=== PATIENT | female | born 1985 | race Caucasian/White ===

== ENCOUNTER → 2020-02-06 11:01 | Outpatient (CLI) | payer OTHER, SELFPAY ==
--- NOTE | ~2020-02-06 | XR_ITS ---
XR chest 2V DATE: 02/06/2020 11:12 INDICATION: Cough. Acute bronchitis. TECHNIQUE: 2 views COMPARISON: 10/15/2018 two-view chest FINDINGS: Bilateral hyperinflation. No pulmonary infiltrate or consolidation, pleural effusion or pul monary vascular congestion or pneumothorax. No hilar or mediastinal enlargement. Normal heart size. IMPRESSION: Bilateral hyperinflation; no active cardiopulmonary disease Reviewed, dictated and finalized at location B.
== END ==
PROVIDERS: PCP Internal Medicine; Visit Provider Nurse Practitioner
DX: J20.9 Acute bronchitis, unspecified (principal); R91.8 Other nonspecific abnormal finding of lung field
CPT/HCPCS: 71046

== ENCOUNTER 2020-02-09 08:03 | Outpatient (CLI) | payer OTHER, SELFPAY ==
--- NOTE | 2020-02-16 16:12 | WPDPFTINT ---
PFT Interpretation PFT Interpretation: DOS: 02/09/2020 REQUESTING: Neli Moss NP REASON FOR TESTING: Cough PULMONARY FUNCTION TESTS Results are reproducible. Spirometry: Normal FEV1, 92%. Normal FVC, 100%. Decreased FEV1% consistent with airflow obstruction. Lung volumes: Normal TLC 93%. No air trapping. Mild increase in airway resistance 156%. Diffusion: DLCO 94%, normal. Flow volume loop: Normal. IMPRESSION: Mild obstructive ventilatory defect without response to bronchodilator. Increase in airway resistance. Lack of response to bronchodilators should not preclude use if clinically indicated Laurita Nash MD
== END 2020-02-09 08:04 | disposition home or self-care (01) ==
PROVIDERS: PCP Internal Medicine; Visit Provider Nurse Practitioner
DX: R05 Cough (principal)
CPT/HCPCS: 94060; 94726; 94729

== ENCOUNTER → 2020-07-19 13:25 | Outpatient (CLI) | payer OTHER, SELFPAY ==
--- NOTE | ~2020-07-19 | US_ITS ---
EXAMINATION: US thyroid DATE: 07/19/2020 13:41 INDICATION: Goiter. TECHNIQUE: Multiple ultrasound images of the thyroid were obtained. COMPARISON: None. FINDINGS: The right thyroid lobe measures 5.4 x 1.7 x 1.8 cm. The left thyroid lobe measures 4.3 x 1.2 x 1.5 c m. In the left thyroid lobe, there is a 1.8 cm solid, hypoechoic, weueq-ntwr-ojme nodule with ill-de fined margin without echogenic foci (TI-RADS TR4). In the right thyroid lobe, there is a 14 mm solid, hypoechoic, pzyld-yewe-zbzt nodule with ill-defined margin without echogenic foci (TR4). In the righ t thyroid lobe, there is a 3.0 cm solid, hypoechoic, jrlda-zvvl-ymxs nodule with ill-defined margin w ithout echogenic foci (TR4). IMPRESSION: 1. Thyroid nodules. Ultrasound-guided fine-needle aspiration of the 2 largest nodules is recommended. Reviewed, dictated and finalized at location B. IMPRESSION: 1. Thyroid nodules. Ultrasound-guided fine-needle aspiration of the 2 largest n odules is recommended.
== END ==
PROVIDERS: PCP Internal Medicine; Visit Provider Internal Medicine Endocrinology, Diabetes & Metabolism
DX: E04.2 Nontoxic multinodular goiter (principal)
CPT/HCPCS: 76536

== ENCOUNTER 2020-08-02 13:13 | Outpatient (CLI) | payer OTHER, SELFPAY ==
--- NOTE | ~2020-08-02 | US_ITS ---
EXAMINATION: US FNA w image guidance, US FNA additional DATE: 08/02/2020 14:41 INDICATION: Bilateral thyroid nodules. TECHNIQUE: A time-out was performed to verify the patient's name, date of , and procedure to be performed . The procedure and its benefits and risks were discussed with the patient. Risks specifically discus sed included bleeding and infection. The patient understood the risks and agreed to proceed. Attentio n was first turned to the left thyroid nodule. The left neck was prepped and draped in the usual ster ile manner. 3 mL 1% lidocaine was used for local anesthesia. 6 passes were made with a 25G needle i nto the lesion. Appropriate needle location was documented with continuous sonographic guidance. Att ention was then turned to the right thyroid nodule. The right neck was prepped and draped in usual st erile manner. An additional 3 mm 1% lidocaine was used for local anesthesia. 6 passes were made with a 25G needle into the lesion. Appropriate needle location was documented with continuous sonographic guidance. Sterile bandages were applied. There were no immediate complications. FINDINGS: Grayscale ultrasound images demonstrate biopsy needles advanced into the elongated 1.9 cm TI RADS 4 n odule at the inferior left thyroid. Subsequent images demonstrate biopsy needles advanced into the 3. 0 cm TI RADS 4 right thyroid nodule. IMPRESSION: 1. Successful ultrasound-guided fine needle aspiration of a 1.9 cm TI RADS 4 left thyroid nodule. 2. Successful ultrasound-guided fine-needle aspiration of a 3.0 cm TI RADS 4 right thyroid nodule. Reviewed, dictated and finalized at location A. IMPRESSION: 1. Successful ultrasound-guided fine needle aspiration of a 1.9 cm TI RADS 4 l eft thyroid nodule. 2. Successful ultrasound-guided fine-needle aspiration of a 3.0 cm TI RADS 4 ri ght thyroid nodule.
== END 2020-08-02 13:14 | disposition home or self-care (01) ==
PROVIDERS: PCP Internal Medicine; Visit Provider Internal Medicine Endocrinology, Diabetes & Metabolism
DX: E04.2 Nontoxic multinodular goiter (principal)
CPT/HCPCS: 10005; 10006; 88173; 88305

== ENCOUNTER 2022-02-17 10:20 | Emergency (ER) | payer OTHER, SELFPAY ==
[2022-02-17] VITALS (28 sets, daily range): BP systolic 135–164; BP diastolic 92–108; PULSE 71–100; RESP 12–27; TEMP 37.3; O2SAT 97–100
--- NOTE | ~2022-02-17 | CT_ITS ---
EXAMINATION: CT abdomen pelvis w con EXAM DATE: 02/17/2022 13:39 INDICATION: Vaginal bleeding, bladder sling 02/07. TECHNIQUE: Spiral CT of the abdomen and pelvis was performed following intravenous injection of 100 m L Omnipaque 350. Axial, coronal and sagittal images of the abdomen and pelvis were reviewed. The do se-length product (DLP) for this examination was 942.89 mGy-cm. The exposure was tailored according to patient size (auto mA exposure control), and iterative reconstruction (ASIR) was used as additiona l dose reduction technique. Comparison is made to prior examination from 06/02/2012. FINDINGS: No free intraperitoneal fluid or hemorrhage. There is hepatic steatosis without suspicious focal lesion identified. Spleen, adrenal glands, pancreas are unremarkable. Gallbladder is unremark able. No biliary obstruction. Portal and splenic veins are patent. Kidneys enhance symmetrically. There is no hydronephrosis. The uterus and ovaries are unremarkable, no adnexal mass. The bladder is unremarkable. There is no retroperitoneal or pelvic lymphadenopathy. There are no findings to suggest appendicitis. The stomach and small bowel are unremarkable. There is expected amount of colonic stool. No free intraperitoneal gas. The heart is normal in size. T here are no pericardial or pleural effusions. The lung bases are unremarkable. The bones are unrema rkable. IMPRESSION: 1. Unremarkable bladder. Unremarkable exam. Reviewed, dictated and finalized at location B.
[2022-02-17 10:51] LABS: Basophils Percent Auto 0.7 % (0.2-1.2); Eosinophils Absolute Auto 0.1 K/mm3 (0-0.3); Eosinophils Percent Auto 2.1 % (0-4.4); Hematocrit 40.1 % (37.0-47.0); Hemoglobin 13.5 g/dL (12.0-15.0); Immature Granulocyte Absolute 0.02 K/mm3 (0.00-0.031); Immature Granulocyte Percent A 0.4 % (0-0.5); Lymphocytes Absolute Auto 2.09 K/mm3 (0.9-3.2); Lymphocytes Percent Auto 37.2 % (18.3-44.2); Mean Corpuscular HGB Conc 33.7 g/dl (32-36); Mean Corpuscular Hemoglobin 31.6 pg (26-34); Mean Corpuscular Volume 93.9 fl (80-100); Mean Platelet Volume 9.7 fl (7.4-10.4); Monocytes Absolute Auto 0.4 K/mm3 (0.1-0.6); Monocytes Percent Auto 7.8 % (2.6-8.5); Neutrophils Absolute Auto 2.9 K/mm3 (1.3-6.7); Neutrophils Percent Auto 51.8 % (45.5-73.1); Platelet Count Result 269 k/mm3 (150-375); Red Blood Count 4.27 M/mm3 (4.2-5.4); Red Cell Distribution Width 11.3 % (11.5-14.5); White Blood Count 5.6 K/mm3 (4.5-10.0)
[2022-02-17 11:03] LABS: Prothrombin Time 12.5 Seconds (11.1-14.7)
[2022-02-17 11:04] LABS: Partial Thromboplastin Time 26.9 SECONDS (22.3-36.8)
[2022-02-17 11:05] LABS: Alanine Aminotransferase 112 U/L (4-35); Albumin Level 4.6 g/dL (3.5-5.1); Alkaline Phosphatase 91 U/L (38-126); Anion Gap 12 mmol/L (8-16); Aspartate Amino Transferase 76 U/L (14-36); Bilirubin,Total 0.3 mg/dL (0.2-1.3); Blood Urea Nitrogen 10 mg/dL (7-17); Calcium 9.2 mg/dL (8.4-10.2); Carbon Dioxide 22 mmol/L (22-30); Chloride 103 mmol/L (98-107); Estimated CRCL calculation 158 ml/min; Estimated Glomerular Filt Rate > 60; Glucose 93 mg/dL (65-110); Potassium 3.9 mmol/L (3.4-5.0); Sodium 137 mmol/L (137-145)
[2022-02-17 11:11] LABS: Add Urine Microscopic? YES; Appearance Urine Clear (Clear); Bilirubin Urine Negative (Negative); Blood Urine 3+ (Negative); Color Urine Straw (Yellow); Glucose Urine UA Negative (Negative); Ketones Urine Negative (Negative); Leukocyte Esterase Ur Negative LEU/UL (Negative); Nitrate Urine Negative (Negative); Protein Urine Negative (Negative); RBC Urine 0-2 /hpf (0-2); Squamous Epithelial Cell Urine Occasional /hpf (Few); Urobilinogen Urine Negative mg/dL (<2.0); WBC Urine 0-3 /hpf
[2022-02-17 11:14] LABS: Specific Grav Ur 1.003 (1.001-1.035)
--- NOTE | 2022-02-17 11:21 | ED.GENADULT ---
HPI - General Adult General Chief complaint: Unspecified <JOS Martin Last Filed: 02/17/22 19:55> Stated complaint: losing a lot of blood <JOS Martin Last Filed: 02/17/22 19:55> Time Seen by Provider: 02/17/22 10:37 <JOS Martin Last Filed: 02/17/22 19:55> Source: patient <JOS Martin Last Filed: 02/17/22 19:55> Mode of arrival: ambulatory <JOS Martin Last Filed: 02/17/22 19:55> Limitations: no limitations <JOS Martin Last Filed: 02/17/22 19:55> History of Present Illness HPI narrative: Patient is a 36-year-old female who presents the ED with report of vaginal bleeding. Patient reports she had a bladder sling surgery done on 02/[address] Szymanski for stress incontinence. She has been doing well since surgery and denies any current urinary symptoms. This morning patient went to the bathroom and noted having profuse bleeding from her vagina. She states it was streaming out of her. She tried calling Dr. Szymanski's office, but was unable to get a hold of anybody, thus prompting her presentation to the ED. Patient reports she had a normal menstrual cycle last week. She was supposed to start her new control pack yesterday but did not pick this up from the pharmacy yet. She also reports having lower abdominal cramping and mild lightheadedness, but notes she is very anxious about the blood. She denies any nausea, vomiting, fever, chills, back pain, rectal bleeding, diarrhea, constipation. <JOS Martin Last Filed: 02/17/22 19:55> Related Data Home medications: Home Medications Medication Instructions Recorded Confirmed multivitamin 1 tablet PO DAILY 10/06/19 10/31/21 melatonin 3 mg capsule 3 mg PO .QHS cap 05/04/20 10/31/21 levothyroxine 50 mcg capsule 50 mcg PO DAILY 01/08/21 10/31/21 <JOS Martin Last Filed: 02/17/22 19:55> Allergies/adverse reactions: Allergies Allergy/AdvReac Type Severity Reaction Status Date / Time Penicillins Allergy Unknown Rash Verified 02/17/22 10:29 <Junie Morales PA-C - Last Filed: 02/17/22 19:55> Review of Systems Review of Systems: CONSTITUTIONAL: Denies fever, chills, or sweats. CARDIOVASCULAR: Denies chest pain, palpitations, or edema. RESPIRATORY: Denies dyspnea. GASTROINTESTINAL: Reports lower abdominal cramping. Denies nausea, vomiting, rectal bleeding, constipation, or diarrhea. GENITOURINARY: Reports vaginal bleeding. Denies dysuria or hematuria. SKIN: Denies rash or itching. MUSCULOSKELETAL: Denies back pain, joint pain, or myalgia. NEUROLOGIC: Reports lightheadedness. Denies headache, numbness, or weakness. PSYCHIATRIC: Reports anxiety. <Junie Morales PA-C - Last Filed: 02/17/22 19:55> All systems reviewed & are unremarkable except as noted in HPI and below <Junie Morales PA-C - Last Filed: 02/17/22 19:55> [facility] Past Medical History Medical History: Medical History Alcohol consumption binge drinking Pyelonephritis Recurrent UTI (urinary tract infection) <Junie Morales PA-C - Last Filed: 02/17/22 19:55> Surgical History Surgical History: Surgical History H/O breast augmentation 2007 H/O wrist surgery 2012 History of bladder surgery <Junie Morales PA-C - Last Filed: 02/17/22 19:55> Family History Family History: Family History Mother Diabetes mellitus Hypertension Hyperthyroidism Grandparent Cerebrovascular accident Sibling Family history of hypothyroidism Anemia Other Asthma Family history of alcoholism Family history of arthritis Family history of coronary artery disease <Junie Morales PA-C - Last Filed: 02/17/22 19:55> Social History Social History: Social History (Reviewed 02/17/22 @ 19:47 by Rac
--- NOTE | 2022-02-17 15:44 | WPDURCON ---
Assessment and Plan Assessment and plan (1) Status post creation of urethral sling by suprapubic approach: Code(s): Z98.890 - Other specified postprocedural states Status: Acute Assessment and Plan: 10 day s/p Cystoscopy, urethral sling placement by Dr. Szymanski at [facility] on 02/07/22. Vaginal incision is intact, tender on examination. (2) Post-op bleeding: Qualifiers: Procedure type: genitourinary Surgical complication system/body Area: genitourinary Qualified Code(s): N99.820 - Postprocedural hemorrhage of a genitourinary system organ or structure following a genitourinary system procedure Status: Acute Assessment and Plan: H&H stable. WBC stable. CT shows no urologic abnormalities. She is afebrile and UA shows blood only. No mesh noted on examination. Patient likely had post operative hematoma that was passed from her vaginal incision. She is ok to be discharged home and follow up as planned in 4 weeks in the office for another vaginal examination. She should come back to the ER or go to the office if bleeding re-occurs, she develops symptoms of infection, fever or new acute abdominal pain. Urology Consult Note HPI Date Seen: 02/17/22 Primary Care Provider: Smith Hernandez, Consult Narrative Narrative: Bertha Ramsay is a 36 year old female who presented to the ER s/p Cystoscopy and urethral sling placement by Dr. Szymanski on 02/07/22. She describes having sudden onset this morning of vaginal bleeding with clots. She states it was a very large amount with clots and she was worried. She states it started around 9:30am and has persisted through much of day soaking her pants and underwear. The last trip the restroom in the ER she states it had started to slow down. She had her menstrual cycle last week which ended before this started. She is afebrile, denies dysuria, hematuria, flank pain, nausea, vomiting, weakness, frequency or urgency to urinate. She does state she is having some cramping in her suprapubic area. A CT scan was completed today which showed no urologic abnormalities. Her H&H is stable and WBC is within normal limits. She is afebrile and urinalysis shows 3+blood, otherwise normal. Review of Systems Cardiovascular: Cardiovascular: Reports no additional cardiovascular complaints Respiratory: Respiratory: Reports no additional respiratory complaints Gastrointestinal: Gastrointestinal: Reports abdominal pain, Denies nausea and Denies vomiting Genitourinary: Genitourinary: Reports abnormal vaginal bleeding, Denies hematuria, Denies nocturia, Denies menorrhagia, Denies dysuria, Reports pelvic pain, Denies flank pain, Denies urinary incontinence, Denies urinary hesitancy and Denies urinary urgency ON LICENSE OF [facility] Past Medical History Medical History Alcohol consumption binge drinking Pyelonephritis Recurrent UTI (urinary tract infection) Surgical History Surgical History (Updated 02/17/22 @ 15:47 by Lillie Pagan APRN) H/O breast augmentation 2007 H/O wrist surgery 2012 History of bladder surgery Family History Family History Mother Diabetes mellitus Hypertension Hyperthyroidism Grandparent Cerebrovascular accident Sibling Family history of hypothyroidism Anemia Other Asthma Family history of alcoholism Family history of arthritis Family history of coronary artery disease Social History Social History Smoking status: Never smoker Alcohol intake: current Alcohol use details: social Meds Home Medications and Allergies Home Medications Medication Instructions Recorded Confirmed Type multivitamin 1 tablet PO DAILY 10/06/19 10/31/21 History melatonin 3 mg capsule 3 mg PO .QHS cap 05/04/20 10/31/21 History levothyroxine 50 mcg capsule 50 mc
== END 2022-02-17 15:56 | disposition home or self-care (01) ==
PROVIDERS: Physician Assistant; Emergency Provider Emergency Medicine; PCP Internal Medicine
DX: N99.820 Postprocedural hemorrhage of a genitourinary system organ or structure following a genitourinary system procedure (principal); Z87.440 Personal history of urinary (tract) infections
CPT/HCPCS: 36415; 51701; 74177; 80053; 81001; 81025; 85025; 85610; 85730; 86850; 86900; 86901; 99284; Q9967

== ENCOUNTER → 2022-02-27 14:33 | Outpatient (CLI) | payer OTHER, SELFPAY ==
--- NOTE | ~2022-02-27 | XR_ITS ---
EXAMINATION: XR chest 2V DATE: 02/27/2022 14:53 INDICATION: Acute bronchitis TECHNIQUE: PA and lateral views of the chest were obtained. COMPARISON: Chest radiograph dated 02/06/2020 FINDINGS: The lungs remain clear with no focal airspace opacities, pulmonary edema, pleural effusion or pneumot horax. The cardiomediastinal silhouette is normal. Chronic mild anterior wedging of a midthoracic alexi tebral body. IMPRESSION: 1. No acute cardiopulmonary disease. Reviewed, dictated and finalized at location B.
== END ==
PROVIDERS: PCP Internal Medicine; Visit Provider Clinical Nurse Specialist
DX: J20.9 Acute bronchitis, unspecified (principal)
CPT/HCPCS: 71046

== ENCOUNTER 2022-03-11 09:50 | Outpatient (CLI) | payer OTHER, SELFPAY ==
--- NOTE | 2022-03-14 12:51 | WPDHOLTEREM ---
Holter/Event Monitor Holter/Event Monitor Date of procedure: 03/11/22 Holter/Event Procedure: 48 Hr Holter Monitor Diagnosis: Palpitations Conclusion: 1. 48 hour holter monitor on 03/11/22. 2. Underlying rhythm is sinus rhythm. HR range 54-171 bpm; average HR 92 bpm. 3. There are 86 premature supraventricular complexes and 1 supraventricular couplet. No supraventricular tachycardia. 4. There are 3 premature ventricular complexes. No ventricular tachycardia. 5. No sinoatrial or atrioventricular blocks. No significant pauses greater than 2 seconds. 6. Patient reports symptoms of spinning and fast heart rate which demonstrate sinus rhythm, HR range 100-129 bpm.
== END 2022-03-11 09:51 | disposition home or self-care (01) ==
LOC: ANHCARD 09:51
PROVIDERS: PCP Internal Medicine; Visit Provider Clinical Nurse Specialist
DX: R00.2 Palpitations (principal)
CPT/HCPCS: 93225; 93226

== ENCOUNTER 2022-03-18 09:45 | Outpatient (CLI) | payer OTHER, SELFPAY ==
--- NOTE | 2022-03-18 10:12 | ECHO_ITS ---
Patient Info Name: Bertha Ramsay Age: 36 years : 1985 Gender: Female Ht: 68 in Wt: 215 lbs BSA: 2.20 m2 HR: 74 bpm BP: 155 / 114 mmHg Technical Quality: Good Exam Date: 03/18/2022 10:31 AM Exam Location: [facility] Patient Status: Outpatient Admit Date: 03/18/2022 Staff Ordering Physician: Lesly Vidal Director Of Clinical Applications: Jeferson Dewey RDCS, RT Attending Provider: Lesly Vidal Referring Physician: Marcy MORTENSEN; Exam Type: CA echo doppler color flow Study Info Indications R00.2 - Palpitations Complete two-dimensional, color flow and Doppler transthoracic echocardiogram is performed. Strain analysis performed. Summary 1. Complete two-dimensional, color flow and Doppler transthoracic echocardiogram is performed. 2. Left ventricular chamber dimension is normal. 3. Left ventricular systolic function is normal, estimated at 65-70%. 4. The left ventricular diastolic function is normal. 5. E/e' 7 is not elevated. 6. Global longitudinal strain is normal at -17.7%. Left Ventricle E/e' 7 is not elevated. Global longitudinal strain is normal at -17.7%. Left ventricular chamber dimension is normal. Left ventricular systolic function is normal, estimated at 65-70%. The left ventricular diastolic function is normal. Right Ventricle Right ventricular systolic function is normal and with normal TAPSE 2.4 cm. Right ventricular chamber dimension is normal. Left Atria Left atrial chamber dimension is normal. Right Atria Right atrial chamber dimension is normal. Aortic Valve The aortic valve is trileaflet. There is no aortic valve stenosis. There is no aortic valve regurgitation. Pulmonic Valve There is no pulmonic regurgitation. Mitral Valve There is no mitral valve stenosis. There is no mitral valve regurgitation. Tricuspid Valve There is no tricuspid valve regurgitation. Pericardium/Pleural There is no pericardial effusion. Inferior Vena Cava Normal inferior vena cava with >50% collapse upon inspiration consistent with normal right atrial pressure, 5 mmHg. Aorta The aortic root size at the sinus of Valsalva is normal. Left Ventricular Outflow Tract Name Value Normal LVOT 2D LVOT Diameter 2.0 cm LVOT Doppler LVOT Peak Gradient 2 mmHg LVOT Mean Gradient 1 mmHg LVOT VTI 15 cm LVOT VTI/AV VTI Ratio 0.9 LVOT Stroke Volume 47 ml LVOT CO 3.7 l/min LVOT CI 1.7 l/min/m2 Mitral Valve Name Value Normal MV Doppler MV Decel [place] 413 cm/s2 MV PHT 58 ms MV Area (PHT) 3.8 cm2 4.0-5.0 M
== END 2022-03-18 09:46 | disposition home or self-care (01) ==
PROVIDERS: PCP Internal Medicine; Visit Provider Clinical Nurse Specialist
DX: R00.2 Palpitations (principal)
CPT/HCPCS: 93306

== ENCOUNTER 2022-05-05 08:07 | Outpatient (CLI) | payer OTHER, SELFPAY | END 2022-05-19 10:01 | disposition home or self-care (01) | LOC: ANHCSM 08:08 | PROVIDERS: PCP Internal Medicine; Visit Provider Internal Medicine Cardiovascular Disease | DX: G47.10 Hypersomnia, unspecified (principal) | CPT/HCPCS: 99199 ==

== ENCOUNTER 2023-01-03 09:20 | Emergency (ER) | payer OTHER, SELFPAY ==
--- NOTE | 2023-01-03 09:23 | ED.URI ---
HPI - URI/Sore Throat General Chief Complaint: Upper Respiratory Infection Stated Complaint: SORE THROAT S/P STREP EXPOSURE Time Seen by Provider: 01/03/23 09:23 Source: patient and RN notes reviewed History of Present Illness [facility] Narrative: Patient is a 37-year-old female who presents to urgent care with complaints of sore throat, runny nose, headache and fatigue. Patient states that her son was positive for strep approximately 4 days ago and she has had symptoms since . Denies any fevers, nausea or vomiting. No other acute complaints. Patient has been taking Advil for her symptoms no acute distress noted. Patient aware of the plan of care Some parts of this dictation were generated by voice recognition software and may contain typographical and/or grammatical inaccuracies. Related Data Home Medications Medication Instructions Recorded Confirmed levothyroxine 50 mcg capsule 50 mcg PO DAILY 01/08/21 01/03/23 (Tirosint) cetirizine 10 mg capsule (Zyrtec) 10 mg PO DAILY PRN Congestion 03/27/22 01/03/23 cyanocobalamin (vitamin B-12) 1,000 mcg subcut WEEKLY 10/29/22 01/03/23 1,000 mcg/mL injection solution (Dodex) losartan 25 mg tablet 25 mg PO DAILY 10/29/22 01/03/23 metformin 500 mg tablet,extended 500 mg PO DAILY 10/29/22 01/03/23 release 24 hr tirzepatide 2.5 mg/0.5 mL 2.5 mg subcut WEEKLY 10/29/22 01/03/23 subcutaneous pen injector (Mounjaro) Allergies Allergy/AdvReac Type Severity Reaction Status Date / Time Penicillins Allergy Unknown Rash Verified 01/03/23 09:32 Review of Systems Review of Systems: CONSTITUTIONAL: Denies fever, chills, or sweats. Reports of fatigue EYES: Reports runny nose, sore throat CARDIOVASCULAR: Denies chest pain, palpitations, or edema. RESPIRATORY: Denies cough or dyspnea. GASTROINTESTINAL: Denies abdominal pain, nausea, vomiting, or diarrhea. GENITOURINARY: Denies dysuria or hematuria. SKIN: Denies rash or itching. MUSCULOSKELETAL: Denies back pain, joint pain, or myalgia. NEUROLOGIC: Reports of headache All other systems reviewed are negative, except as documented in HPI. [facility] Past Medical History Medical History Alcohol consumption binge drinking Pyelonephritis Recurrent UTI (urinary tract infection) Surgical History Surgical History H/O breast augmentation 2007 H/O wrist surgery 2011 History of bladder surgery 02/07/2022 Bladder sling Family History Family History Mother Diabetes mellitus Hypertension Hyperthyroidism Grandparent Cerebrovascular accident Sibling Family history of hypothyroidism Anemia Other Asthma Family history of alcoholism Family history of arthritis Family history of coronary artery disease Social History Social History (Updated 10/29/22 @ 08:36 by Anushka Guardado [facility]) Smoking status: Never smoker Alcohol intake: current Alcohol use details: social Lack of Transportation: No Lack of Food: Never True Current Housing: I Have Housing Concerned About Future Housing: No Difficulty Paying Gas/Electric Bills: No Difficulty Paying for Meds: No Currently Unemployed: No Education: Master's Degree or Higher Difficulty w/ Childcare or Family Care: No Comments At the time of my signature, I reviewed and agree with the nursing past medical, surgical, social, and family history. There is no relevant family history pertinent to the patient complaint. Exam Narrative: GENERAL: This is a well-nourished, well-developed patient, in no apparent distress. HEAD: normocephalic, atraumatic. EYES: PERRL. Sclera clear/white. Vision is grossly intact. EARS: External ears normal, auditory canals clear and without drainage, TMs normal without perforation. Hearing grossly intact. NOSE: External nose normal with no obvious nasal dischar
[2023-01-03 09:30] VITALS: BP 131/99; PULSE 100; RESP 16; TEMP 36.3; O2SAT 100
== END 2023-01-03 09:49 | disposition home or self-care (01) ==
PROVIDERS: Emergency Provider Nurse Practitioner Family; PCP Internal Medicine
DX: J02.9 Acute pharyngitis, unspecified (principal); Z20.818 Contact with and (suspected) exposure to other bacterial communicable diseases
CPT/HCPCS: 87081; 87880; 99213; G0463

== ENCOUNTER 2023-01-17 13:03 | Emergency (ER) | payer OTHER, SELFPAY ==
[2023-01-17 13:11] VITALS: BP 139/98; PULSE 90; RESP 16; TEMP 36.5; O2SAT 99
--- NOTE | 2023-01-17 13:41 | ED.FEMALEGU ---
HPI - Female Genitourinary General Chief complaint: Urogenital-Female Stated complaint: UTI SYMPTOMS Time Seen by Provider: 01/17/23 13:35 Source: patient, RN notes reviewed and old records reviewed Mode of arrival: ambulatory Limitations: no limitations History of Present Illness HPI Narrative: 37-year-old female who presents to [facility] with complaints urinary tract symptoms which include burning with urination, urinary frequency and urgency which all started yesterday. Patient reports she has taken 2 doses of Bactrim DS which has not helped her symptoms which usually does and she also has been taking azo with last dose 1100 today Patient reports that she has not had a UTI since May but has had several over the past 6 years. Patient reports that she has seen Dr Szymanski Urologist in the past. MD elicited complaint: dysuria and UTI Pertinent past history: recurrent UTIs Onset (ago): day(s) (yesterday) Related Data Home Medications Medication Instructions Recorded Confirmed levothyroxine 50 mcg capsule 50 mcg PO DAILY 01/08/21 01/17/23 (Tirosint) cetirizine 10 mg capsule (Zyrtec) 10 mg PO DAILY PRN Congestion 03/27/22 01/17/23 cyanocobalamin (vitamin B-12) 1,000 mcg subcut WEEKLY 10/29/22 01/17/23 1,000 mcg/mL injection solution (Dodex) losartan 25 mg tablet 25 mg PO DAILY 10/29/22 01/17/23 metformin 500 mg tablet,extended 500 mg PO DAILY 10/29/22 01/17/23 release 24 hr tirzepatide 2.5 mg/0.5 mL 2.5 mg subcut WEEKLY 10/29/22 01/17/23 subcutaneous pen injector (Mounjaro) Allergies Allergy/AdvReac Type Severity Reaction Status Date / Time Penicillins Allergy Unknown Rash Verified 01/17/23 13:09 Review of Systems Review of Systems: CONSTITUTIONAL: Denies fever, chills, or sweats. CARDIOVASCULAR: Denies chest pain, palpitations, or edema. RESPIRATORY: Denies cough or dyspnea. GASTROINTESTINAL: Denies abdominal pain, nausea, vomiting, or diarrhea. GENITOURINARY: Reports dysuria, frequency, urgency. Denies flank pain or hematuria. SKIN: Denies rash or itching. MUSCULOSKELETAL: Denies back pain or myalgia. Denies CVA tenderness NEUROLOGIC: Denies headache All systems reviewed & are unremarkable except as noted in HPI and below PMFSH Past Medical History Medical History Alcohol consumption binge drinking Pyelonephritis Recurrent UTI (urinary tract infection) Surgical History Surgical History H/O breast augmentation 2007 H/O wrist surgery 2011 History of bladder surgery 02/07/2022 Bladder sling Family History Family History Mother Diabetes mellitus Hypertension Hyperthyroidism Grandparent Cerebrovascular accident Sibling Family history of hypothyroidism Anemia Other Asthma Family history of alcoholism Family history of arthritis Family history of coronary artery disease Social History Social History (Updated 10/29/22 @ 08:36 by Anushka Guardado [facility]) Smoking status: Never smoker Alcohol intake: current Alcohol use details: social Lack of Transportation: No Lack of Food: Never True Current Housing: I Have Housing Concerned About Future Housing: No Difficulty Paying Gas/Electric Bills: No Difficulty Paying for Meds: No Currently Unemployed: No Education: Master's Degree or Higher Difficulty w/ Childcare or Family Care: No Comments At time of signature, agree with nursing past medical, surgical, social and family history. There is no relevant family history pertinent to the presenting complaint Exam Narrative: GENERAL: Well-appearing, well-nourished, and in no acute distress. HEAD: Normocephalic, atraumatic. NECK: Supple.no lymphadenopathy CHEST: Clear to auscultation. No respiratory distress.SAO2 99% on room air HEART: Regular rate and rhythm. No murmur heard. Normal periphe
== END 2023-01-17 13:55 | disposition home or self-care (01) ==
PROVIDERS: Emergency Provider Registered Nurse; PCP Internal Medicine
DX: N39.0 Urinary tract infection, site not specified (principal)
CPT/HCPCS: 81003; 87086; 87088; 99213; G0463

== ENCOUNTER 2023-03-09 11:10 | Outpatient (CLI) | payer OTHER, SELFPAY ==
[2023-03-09 11:26] LABS: Hematocrit 38.1 % (37.0-47.0); Hemoglobin 12.9 g/dL (12.0-15.0); Mean Corpuscular HGB Conc 33.9 g/dl (32-36); Mean Corpuscular Hemoglobin 31.8 pg (26-34); Mean Corpuscular Volume 93.8 fl (80-100); Platelet Count Result 259 k/mm3 (150-375); Red Blood Count 4.06 M/mm3 (4.2-5.4); Red Cell Distribution Width 11.9 % (11.5-14.5); White Blood Count 8.6 K/mm3 (4.5-10.0)
[2023-03-09 14:52] LABS: Alanine Aminotransferase 30 U/L (6-35); Albumin Level 4.9 g/dL (3.5-5.1); Alkaline Phosphatase 69 U/L (38-126); Anion Gap 8 mmol/L (8-16); Aspartate Amino Transferase 27 U/L (14-36); Bilirubin,Total 0.5 mg/dL (0.2-1.3); Blood Urea Nitrogen 14 mg/dL (7-17); Calcium 9.5 mg/dL (8.4-10.2); Carbon Dioxide 26 mmol/L (22-30); Chloride 101 mmol/L (98-107); Estimated Glomerular Filt Rate > 60; Glucose 88 mg/dL (65-110); Potassium 4.6 mmol/L (3.4-5.0); Sodium 135 mmol/L (137-145)
[2023-03-09 14:58] LABS: Iron 113 ug/dL (37-170)
[2023-03-09 15:12] LABS: Percent Iron Saturation 32 % (20-50)
== END 2023-03-09 11:11 | disposition home or self-care (01) ==
LOC: ANHLAB 11:12
PROVIDERS: PCP Internal Medicine; Visit Provider Internal Medicine Hematology & Oncology
DX: E83.110 Hereditary hemochromatosis (principal)
CPT/HCPCS: 36415; 80053; 82728; 83540; 83550; 85027

== ENCOUNTER 2023-07-07 12:06 | Outpatient (CLI) | payer OTHER, SELFPAY ==
--- NOTE | ~2023-07-07 | MM_ITS ---
EXAMINATION: MM diag ann implant BI w joel HISTORY: Concern for implant rupture TECHNIQUE: Additional 3-D tomosynthesis images of the breasts were performed and synthetic 2-D images were generated. CAD analysis was submitted and interpreted. COMPARISON: None BREAST PARENCHYMAL COMPOSITION: Breast composed of scattered areas of fibroglandular density FINDINGS: There are bilateral subglandular silicone implants. No definitive evidence for implant rupt ure is seen, although further evaluation with MRI is recommended. There are no suspicious masses, shaina cifications or architectural distortion in either breast to suggest malignancy. IMPRESSION: 1. No evidence for malignancy in either breast. 2. Routine yearly screening mammogram and regular clinical breast examination are recommended. If the re is concern for implant rupture, further evaluation with MRI is recommended. BI-RADS Category 1: Negative Reviewed, dictated and finalized at location A. IMPRESSION: 1. No evidence for malignancy in either breast. 2. Routine yearly screening mammogram and regular clinical breast examination a re recommended. If there is concern for implant rupture, further evaluation wit h MRI is recommended. BI-RADS Category 1: Negative
== END 2023-07-07 12:07 | disposition home or self-care (01) ==
DX: Z12.31 Encounter for screening mammogram for malignant neoplasm of breast (principal); Z98.82 Breast implant status
CPT/HCPCS: 77062; 77066; G0279

== ENCOUNTER → 2023-11-03 14:11 | Outpatient (CLI) | payer OTHER, SELFPAY ==
--- NOTE | ~2023-11-03 | XR_ITS ---
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 RESULT: Lines, tubes, and devices: None. Lungs and pleura: Clear. Cardiomediastinal silhouette: Stable. Other: No acute osseous or upper abdominal finding. IMPRESSION: No acute cardiopulmonary process. Reviewed, dictated and finalized at location K. MATIC NAILING MACHINE OPERATOR
== END ==
PROVIDERS: PCP Internal Medicine; Visit Provider Internal Medicine
DX: R06.00 Dyspnea, unspecified (principal); R05.9 Cough, unspecified; I10 Essential (primary) hypertension
CPT/HCPCS: 71046

== ENCOUNTER 2023-11-03 15:07 | Outpatient (CLI) | payer OTHER, SELFPAY ==
[2023-11-03 15:44] LABS: D Dimer 0.27 ug/mL (<0.48)
== END 2023-11-03 15:08 | disposition home or self-care (01) ==
LOC: ANHLAB 15:08
PROVIDERS: PCP Internal Medicine; Visit Provider Internal Medicine
DX: U07.1 COVID-19 (principal); R06.00 Dyspnea, unspecified
CPT/HCPCS: 36415; 85380

== ENCOUNTER 2023-12-23 11:21 | Outpatient (CLI) | payer OTHER, SELFPAY ==
[2023-12-23 11:42] LABS: Basophils Percent Auto 0.6 % (0.2-1.2); Eosinophils Absolute Auto 0.1 K/mm3 (0-0.3); Eosinophils Percent Auto 0.9 % (0-4.4); Hematocrit 40.4 % (37.0-47.0); Immature Granulocyte Absolute 0.01 K/mm3 (0.00-0.031); Immature Granulocyte Percent A 0.2 % (0-0.5); Lymphocytes Absolute Auto 1.41 K/mm3 (0.9-3.2); Lymphocytes Percent Auto 21.3 % (18.3-44.2); Mean Corpuscular HGB Conc 34.7 g/dl (32-36); Mean Corpuscular Hemoglobin 31.7 pg (26-34); Mean Corpuscular Volume 91.6 fl (80-100); Mean Platelet Volume 9.9 fl (7.4-10.4); Monocytes Absolute Auto 0.4 K/mm3 (0.1-0.6); Monocytes Percent Auto 5.4 % (2.6-8.5); Neutrophils Absolute Auto 4.8 K/mm3 (1.3-6.7); Neutrophils Percent Auto 71.6 % (45.5-73.1); Platelet Count Result 255 k/mm3 (150-375); Red Blood Count 4.41 M/mm3 (4.2-5.4); Red Cell Distribution Width 11.5 % (11.5-14.5); White Blood Count 6.6 K/mm3 (4.5-10.0)
[2023-12-23 12:56] LABS: Cholesterol 310 mg/dL (0-200); HDL Direct 50 mg/dL; Triglycerides 123 mg/dL (<150)
[2023-12-23 13:09] LABS: Alanine Aminotransferase 16 U/L (6-35); Albumin Level 4.8 g/dL (3.5-5.1); Alkaline Phosphatase 54 U/L (38-126); Anion Gap 11 mmol/L (8-16); Aspartate Amino Transferase 24 U/L (14-36); Bilirubin,Total 0.6 mg/dL (0.2-1.3); Blood Urea Nitrogen 12 mg/dL (7-17); Calcium 9.6 mg/dL (8.4-10.2); Carbon Dioxide 25 mmol/L (22-30); Chloride 103 mmol/L (98-107); Estimated Glomerular Filt Rate > 60; Glucose 98 mg/dL (65-110); LDL Cholesterol Direct 185 mg/dL; Potassium 4.5 mmol/L (3.4-5.0); Sodium 139 mmol/L (137-145)
[2023-12-23 14:59] LABS: Iron 109 ug/dL (37-170)
[2023-12-23 15:15] LABS: Percent Iron Saturation 34 % (20-50)
== END 2023-12-23 11:22 | disposition home or self-care (01) ==
LOC: ANHLAB 11:23
PROVIDERS: Clinical Nurse Specialist; PCP Internal Medicine; Visit Provider Internal Medicine Hematology & Oncology
DX: E83.110 Hereditary hemochromatosis (principal); I10 Essential (primary) hypertension
CPT/HCPCS: 36415; 80053; 80061; 82728; 83540; 83550; 85025

== ENCOUNTER 2024-07-06 12:32 | Emergency (ER) | payer OTHER, SELFPAY ==
--- NOTE | 2024-07-06 12:40 | ED.URI ---
HPI - URI/Sore Throat General Chief Complaint: Upper Respiratory Infection Stated Complaint: SINUS CONGESITON Time Seen by Provider: 07/06/24 12:45 Source: patient and RN notes reviewed Mode of arrival: ambulatory Limitations: no limitations History of Present Illness HPI Narrative: 39 y/o female presented for c/o sinus pressure and congestion since 06/26, and states it is moving to her chest for the last 3 days. States she felt better briefly. Endorses sob with exertion, cough is productive of green sputum. Denies lethargy, n/v/d/f/c. Taking Doxycycline 100mg daily for the last 3 weeks while on safari. Tested negative for covid 3 times since onset of symptoms. MD elicited complaint: cough Related Data Home Medications Medication Instructions Recorded Confirmed ascorbic acid 7.5 mg-vit E 7.5 1 tablet PO DAILY 10/06/23 07/06/24 unit-biotin 1,250 mcg chewable tablet (Hair,Skin,Nails with Biotin) escitalopram oxalate 10 mg tablet 10 mg PO DAILY 04/29/24 07/06/24 (Lexapro) testosterone 50 mg implant pellet 50 mg implant DIRECTED 05/12/24 07/06/24 doxycycline hyclate 100 mg tablet 100 mg PO DAILY 07/06/24 07/06/24 Allergies Allergy/AdvReac Type Severity Reaction Status Date / Time Penicillins Allergy Unknown Rash Verified 07/06/24 12:50 Review of Systems Review of Systems: CONSTITUTIONAL: Denies malaise, chills, sweats, fever EYES: Denies visual changes, redness, or discharge ENT: Reports rhinorrhea, congestion, sinus pain, denies otalgia, sore throat CARDIOVASCULAR: Denies chest pain, palpitations, edema RESPIRATORY: Reports cough, post nasal drainage. Denies dyspnea GASTROINTESTINAL: Denies abdominal pain, nausea, vomiting, diarrhea MUSCULOSKELETAL: Denies myalgia NEUROLOGIC: Denies headache PMFSH Past Medical History Medical History Alcohol consumption binge drinking COVID-19 Elevated ferritin level Elevated liver enzymes Hypersomnia Hypertension Hypothyroid Insulin resistance Pyelonephritis Recurrent UTI (urinary tract infection) UTI (urinary tract infection) Vaginal symptom Surgical History Surgical History H/O breast augmentation 2008 H/O wrist surgery 2012 History of bladder surgery 02/07/2022 Bladder sling History of breast surgery new implants, lift, liposuction Family History Family History Mother Diabetes mellitus Hypertension Hyperthyroidism Grandparent Cerebrovascular accident Sibling Family history of hypothyroidism Anemia Other Asthma Family history of alcoholism Family history of arthritis Family history of coronary artery disease Social History Social History Smoking status: Never smoker Alcohol intake: current Alcohol use details: social Substance use: never Lack of Transportation: No Lack of Food: Never True Current Housing: I Have Housing Concerned About Future Housing: No Difficulty Paying Gas/Electric Bills: No Difficulty Paying for Meds: No Currently Unemployed: No Education: Master's Degree or Higher Difficulty w/ Childcare or Family Care: No Exam Narrative: GENERAL: well-appearing EYES: conjunctivae clear ENT: Mucous membranes moist. TM pearly leslie with dull light reflex bilaterally; no tragal tenderness. Oropharynx not erythematous without lesions or exudate, no drooling, no hoarseness, no trismus, uvula midline. No tripod positioning, muffled voice, soft palate or pharyngeal wall bulging CHEST: Clear to auscultation, breath sounds equal. No wheezing, rhonchi, rales, or stridor. No respiratory distress, speaks in full sentences. HEART: Regular rate and rhythm. SKIN: Warm, dry, no rash. NEURO: Alert and oriented x3. PSYCH: Normal mood and affect Course Course Jennie
[2024-07-06 12:41] VITALS: BP 122/85; PULSE 77; RESP 16; TEMP 36.4; O2SAT 100
== END 2024-07-06 12:57 | disposition home or self-care (01) ==
PROVIDERS: Emergency Provider Nurse Practitioner Family; PCP Internal Medicine
DX: J40 Bronchitis, not specified as acute or chronic (principal); I10 Essential (primary) hypertension; E03.9 Hypothyroidism, unspecified; Z86.16 Personal history of COVID-19
CPT/HCPCS: 99213; G0463

== ENCOUNTER 2025-03-21 14:36 | Outpatient (CLI) | payer OTHER, SELFPAY ==
--- NOTE | ~2025-03-21 | MM_ITS ---
EXAMINATION: MM scrn ann implant BI w joel HISTORY: Screening mammogram TECHNIQUE: Craniocaudal and mediolateral oblique 3-D tomosynthesis images with implant displacement a nd synthetic 2-D images were generated. Craniocaudal and mediolateral oblique views of the breasts wi thout implant displacement were obtained using full field digital mammography. CAD analysis was submi tted and interpreted. COMPARISON: 07/07/2023 BREAST PARENCHYMAL COMPOSITION: Dense: The breasts are heterogeneously dense, which may obscure small masses FINDINGS: There is no evidence of suspicious mass, calcification, or architectural distortion to sugg est malignancy in either breast. There has been no suspicious interval change. IMPRESSION: 1. No mammographic evidence of malignancy. 2. Recommend routine screening mammography in one year. BI-RADS Category 1: Negative Reviewed, dictated and finalized at location A.
--- OUTSIDE RECORDS SUMMARY | 2025-03-21 16:29 | XMS_ITS | Referral Summary ---
Author Organization [facility] Address [address] [place] [id number] Care Team Providers Care Crown Presser Name Role Phone Smith Hernandez DO Primary Care Provider [phone]- [phone] Allergies Active Allergy Reactions Criticality Noted Date Comments Benzophenone Rash Medium 11/03/2018 Positive patch test allergen Budesonide Rash Medium 11/03/2018 Positive patch test allergen Iodinated Contrast Media Rash Medium 11/03/2018 Positive patch test allergen- potassium dichromate, Fragrance Other Rash Medium 11/03/2018 Positive patch test allergen- potassium dichromate, Fragrance Penicillins Medications fluticasone (FLONASE) 50 mcg/actuation nasal spray SHAKE LQ AND U 2 SPRAYS IEN QD 0 8 Active escitalopram (LEXAPRO) 10 mg tablet Take 1 tablet (10 mg total) by mouth daily Active UNABLE TO FIND Med Name: Nutrafol 4 capsules daily Active valACYclovir (VALTREX) 500 mg tablet Take 1 tablet (500 mg total) by mouth daily Active Mounjaro 10 mg/0.5 mL pen injector 3 Active phenazopyridine (PYRIDIUM) 200 mg tablet 200MG ORALLY THREE TIMES A DAY NEEDED FOR PAIN FOR 6 DOSES 3 Active Tri-Sprintec, 28, 0.18/0.215/0.25 mg-35 mcg (28) per tablet Take 1 tablet by mouth daily 3 Active neomycin-polymy geeta-dexAMETHaso ne (MAXITROL) 3.5mg/mL-10,000 unit/mL-0.1 % ophthalmic suspension INSTILL 1 DROP INTO BOTH EYES FOUR TIMES DAILY 3 Active metFORMIN (GLUMETZA) 500 mg 24 hr tablet Take by mouth daily Active losartan (COZAAR) 25 mg tablet Take 1 tablet (25 mg total) by mouth daily 3 Active levothyroxine (SYNTHROID) 50 mcg tablet Take 1 tablet (50 mcg total) by mouth daily before breakfast 2 Active Tirosint 50 mcg capsule Take 1 capsule (50 mcg total) by mouth every morning 3 Active levoFLOXacin (LEVAQUIN) 500 mg tablet Take 1 tablet (500 mg total) by mouth daily 3 Active cyanocobalamin (Vitamin B-12) 1,000 mcg/mL injection ADMINISTER 1 ML UNDER THE SKIN EVERY WEEK IN THE MORNING 3 Active cyanocobalamin, vitamin B-12, 1,000 mcg capsule Inject as directed Active azithromycin (ZITHROMAX) 500 mg tablet TAKE 1 TABLET BY MOUTH DAILY FOR 5 DAYS 3 Active loteprednol etabonate 0.5 % ointment Apply to right eye twice daily 3.5 g 11 3 Active hydrocortisone 2.5 % ointment Apply topically 2 (two) times a day 30 g 11 3 Active minoxidiL (LONITEN) 2.5 mg tabletIndicatio ns:hypertension Take 1/2 tablet every other day 30 tablet 5 4 Active Active Problems Problem Noted Date Diagnosed Date 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 2-4 times a month 03/12/2021 Q2: How many drinks containi ng alcohol do you have on a typical day when you are drinking? 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 Gender Identity Not on file Sexual Orientation Straight 02/09/2022 9: 27 AM CDT Last Filed Vital Signs Vital Sign Reading Time Taken Comments Blood Pressure 147/85 03/12/2021 9:08 AM CDT Pulse 96 03/12/2021 9:08 AM CDT Temperature 36.8 C (98.2 F) 03/12/2021 9:08 AM CDT Respiratory Rate - - Oxygen Saturation 100% 03/12/2021 9:08 AM CDT Inhaled Oxygen Concentration - - Weight 96.2 kg (212 lb) 03/12/2021 9:08 AM CDT Height 172.7 cm (5' 8 ) 03/12/2021 9:08 AM CDT Body Mass Index 32.23 03/12/2021 9:08 AM CDT Plan of Treatment Not on file Insurance [facility] CHO[facility] HMO/PPO Address: [facility] [address] [place] [address] [facility] Care Teams Crown Presser Relationship Specialty Start Date End Date Smith Hernandez DO PCP - General Internal Medicine 10/13/18
--- OUTSIDE RECORDS SUMMARY | 2025-03-21 16:29 | XMS_ITS | Clinical Summary ---
Author Organization [facility] Address [address] [place] [id number] Care Team Providers Care Online Marketing Analyst Name Role Phone Smith Hernandez DO Primary Care Provider +1- [phone] Allergies Active Allergy Reactions Criticality Noted Date [...] Lentigo 11/08/2014 Skin neoplasm 11/08/2014 Eczema 04/16/2012 Surgical History Surgery Date Site/Laterality Comments WRIST SURGERY Left AUGMENTATION MAMMAPLASTY 11/23/2007 - 11/22/2008 Medical History Medical History Date Comments Eczema Hypothyroidism Thyroid eye disease Anxiety Family History Medical History Relation Name Comments No Known Problems Father Heart attack Maternal Grandfather Lung cancer Maternal Grandmother Skin cancer Maternal Grandmother Diabetes Mother Hypertension Mother Hypothyroidism Mother Rheum arthritis Mother Glaucoma Mother's Sister Thyroid disease Mother's Sister Stroke Paternal Grandmother Hypothyroidism Sister 1 No Known Problems Sister 2 No Known Problems Sister 3 Macular degeneration Neg Hx Retinal detachment Neg Hx Relation Name Status Comments Father Alive Maternal Grandfather Maternal Grandmother Mother Alive Mother's Sister Paternal Grandfather Paternal Grandmother Sister 1 Alive Sister 2 Alive Sister 3 Alive Social History Tobacco Use Types Packs/Day Years [...] on file 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 Gender Identity Not on file Sexual Orientation Straight 02/09/2022 9: 27 AM CDT Obstetrics History Last Filed Vital Signs Vital Sign Reading [...] 03/12/2021 9:08 AM CDT Plan of Treatment Health Maintenance Due Date Last Done Comments Breast Cancer Screening-Mammogram 1984 Cervical Cancer Screening 1984 Depression Screening 1984 Hepatitis C Screening 1984 Varicella Vaccines (1 of 2 - 13+ 2-dose series) 1997 Hepatitis B Screening 2002 Regular Well Visit/Exam 18-64 2002 Influenza Vaccine (Season Ended) 2025 07/31/2020, 12/06/2017 DTaP/Tdap/Td Vaccine (2 - Td or Tdap) 04/29/2028 04/29/2018 HPV Vaccines Aged Out No longer eligi ble based on patient's age to complete this topic Pneumococcal vaccine <65 Aged Out No longer eligible based on patient's age to complete this topic Insurance [facility] CHO[facility] H[facility]/PPO Address: [address] [address] [place] [address] [facility] HMO Care Teams Online Marketing Analyst Relationship Specialty Start Date End Date Smith Hernandez DO PCP - General Internal Medicine 10/13/18
--- OUTSIDE RECORDS SUMMARY | 2025-03-21 16:30 | XMS_ITS | Clinical Summary ---
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 Gender Identity Not on file Sexual Orientation Not on file Plan of Treatment Health Maintenance Due Date Last Done Comments Hepatitis C Virus (HCV) Screening 1984 TdaP Immunization 1984 Hepatitis B Immunization (1 of 3 - 19+ 3-dose series) 2003 Influenza Immunization (#1) 2024 SARS-COV-2 Immunization ( - 2023-25 season) 2024 Respiratory Syncytial Virus (RSV) Immunization (Adult) (1 - 1-dose 75+ series) 2059 Meningococcal Immunization (ACWY) Aged Out No longer eligible based on patient's age to complete this topic Pneumococcal Immunization Combined Aged Out No longer eligible based on patient's age to complete this topic Rotavirus Immunization Aged Out No lo nger eligible based on patient's age to complete this topic
--- OUTSIDE RECORDS SUMMARY | 2025-03-21 16:31 | XMS_ITS | Clinical Summary ---
Author Organization [facility] [address] [facility] [address] [place] [address] Phone Care Team Providers Care Charging Machine Operator Name Role Phone Smith Hernandez DO Primary Care Provider Allergies Active Allergy Reactions Criticality Noted Date Comments Penicillins Hives High 09/19/2022 Medications valACYclovir (VALTREX) 500 mg tablet Take 500 mg by mouth daily. Active tirzepatide (Mounjaro) 7.5 mg/0.5 mL Pen Injector Inject by subcutaneous injection. Active cyanocobalamin, vitamin B-12, (B-12 COMPLIANCE INJECTION) by Injection route. Active levothyroxine 50 mcg tablet Take 50 mcg by mouth daily before breakfast. 2 Active Active Problems No known active problems Family History Medical History Relation Name Comments Diabetes Mother Relation Name Status Comments Father Alive Mother Alive Sister 1 Alive Sister 2 Alive Sister 3 Alive Son 1 Alive Son 2 Alive Social History Tobacco Use Types Packs/Day Years Used Date Smoking Tobacco: Never Smokeless Tobacco: Never Tobacco Cessation:Counseling Given: Not Answered Alcohol Use Standard Drinks/Week Comments Yes 0 (1 standard drink = 0.6 oz pur e alcohol) occasional Comments Unknown Sex and Gender Information Value Date Recorded Sex Assigned at Not on file Legal Sex Female 3:02 PM DIRECTOR TRAFFIC AND PLANNING Gender Identity Not on file Sexual Orientation Not on file Last Filed Vital Signs Vital Sign Reading Time Taken Comments Blood Pressure 132/85 12/28/2023 1:23 PM DIRECTOR TRAFFIC AND PLANNING Pulse 101 12/28/2023 1:23 PM DIRECTOR TRAFFIC AND PLANNING Temperature 35.7 C (96.2 F) 12/28/2023 1:23 PM DIRECTOR TRAFFIC AND PLANNING Respiratory Rate 14 12/28/2023 1:23 PM DIRECTOR TRAFFIC AND PLANNING Oxygen Saturation 96% 12/28/2023 1:23 PM DIRECTOR TRAFFIC AND PLANNING Inhaled Oxygen Concentration - - Weight 74.8 kg (165 lb) 12/28/2023 1:23 PM DIRECTOR TRAFFIC AND PLANNING Height 172.7 cm (5' 8 ) 03/09/2023 10:39 AM CDT Body Mass Index 25.09 03/09/2023 10:39 AM CDT Plan of Treatment Health Maintenance Due Date Last Done Comments DTAP/TDAP/TD VACCINES (1 - Tdap) 2003 HEPATITIS B VACCINES (1 of 3 - 19+ 3-dose series) 2003 HPV/Cotest (21-29) 2005 CERVICAL CANCER SCREENING 2014 HPV/Cotest (30-65) 2014 PAP SMEAR 2014 INFLUENZA VACCINE (#1) 2024 BREAST CANCER SCREENING 2024 HPV VACCINES Aged Out No longer eligi ble based on patient's age to complete this topic Insurance [employer] POS II [employer] POS II Care Teams Charging Machine Operator Relationship Specialty Start Date End Date Smith Hernandez DO [address] [facility] [address] [place] [address] PCP - General Internal Medicine 03/09/23
--- OUTSIDE RECORDS SUMMARY | 2025-03-21 16:31 | XMS_ITS | Encounter Summary ---
Author Organization 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 Gender Identity Not on file Sexual Orientation Straight 02/09/2022 9: 27 AM CDT documented as of this encounter Plan of Treatment Not on file documented as of this encounter Procedures Procedure Name Priority Date/Time Associated Diagnosis Comments SCAN - LABS 09/12/2020 documented in this encounter Results * SCAN - LABS (09/12/2020) us Provider Scanning Final Result documented in this encounter Visit Diagnoses Not on filedocumented in this encounter Care Teams Experimental Preflight Mechanic Relationship Specialty Start Date End Date Smith Hernandez DO PCP - General Internal Medicine 10/13/18 documented as of this encounter
--- OUTSIDE RECORDS SUMMARY | 2025-03-21 16:32 | XMS_ITS | Encounter Summary ---
Author Organization [facility] Address [address] [place] [address] Phone Care Team Providers Care Supervisor Asphalt Paving Name Role Phone Smith Hernandez DO Primary Care Provider +1- [phone] Encounter Details Date Type Department Care Team (Latest Contact Info) Description 02/09/2020 Orders Only [facility] EML Scanning, Provider Social History Tobacco Use Types Packs/Day Years Used Date Smoking Tobacco: Never Assessed Comments Unknown Sex and Gender Information Value Date Recorded Sex Assigned at Not on file Legal Sex Female 1: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 Gender Identity Not on file Sexual Orientation Straight 02/09/2022 9: 27 AM CDT documented as of this encounter Plan of Treatment Not on file documented as of this encounter Procedures Procedure Name Priority Date/Time Associated Diagnosis Comments PULMONARY - RESULT SCAN 02/09/2020 documented in this encounter Results * PULMONARY - RESULT SCAN (02/09/2020) Anatomical Region Laterality Modality Other us Provider Scanning Final Result documented in this encounter Visit Diagnoses Not on filedocumented in this encounter Care Teams Supervisor Asphalt Paving Relationship Specialty Start Date End Date Smith Hernandez DO PCP - General Internal Medicine 10/13/18 documented as of this encounter
== END 2025-03-21 14:37 | disposition home or self-care (01) ==
PROVIDERS: PCP Clinical Nurse Specialist; Visit Provider Nurse Practitioner Obstetrics & Gynecology
DX: Z12.31 Encounter for screening mammogram for malignant neoplasm of breast (principal)
CPT/HCPCS: 77063; 77067

== ENCOUNTER 2025-05-14 19:23 | Emergency (ER) | payer OTHER, SELFPAY ==
--- NOTE | 2025-05-14 19:26 | ED_ITS ---
HPI - Female Genitourinary General Chief complaint: Urogenital-Female Stated complaint: Uti Symptoms Patient presents to the [facility] with complaints burning with urination and urinary urgency that began today. Patient noted history urinary tract infections that come on very quickly. Denies any fever, chills, body aches, noted blood in urine back pain, flank pain, pain or vaginal symptoms. Related Data Home Medications ?Medication ?Instructions ?Recorded ?Confirmed ?Last Taken ?Type ascorbic acid 7.5 mg-vit E 7.5 1 tablet PO DAILY 10/06/23 12/26/24 Unknown History unit-biotin 1,250 mcg chewable tablet (Hair,Skin,Nails with Biotin) testosterone 50 mg implant pellet 50 mg implant DIRECTED 05/12/24 12/26/24 Unknown History tirzepatide 15 mg/0.5 mL mg subcut 12/26/24 12/26/24 Unknown History subcutaneous pen injector (Mounmoniquero) Allergies Allergy/AdvReac Type Severity Reaction Status Date / Time Penicillins Allergy Unknown Rash Verified 05/14/25 19:35 Review of Systems Constitutional: Constitutional: Reports as per HPI, Denies chills and Denies fatigue Eyes: Eyes: Reports no additional eye complaints Cardiovascular: Cardiovascular: Reports no additional cardiovascular complai nts Respiratory: Respiratory: Reports no additional respiratory complaints Gastrointestinal: Gastrointestinal: Reports no additional gastrointestinal complaints Genitourinary: Genitourinary: Reports as per HPI, Denies abnormal vaginal ble eding, Denies hematuria, Reports nocturia, Denies genital lesions, Reports dysuria, Denies pelvic pain, Denies flank pain, Denies urinary incontinence and Denies vaginal discharge Musculoskeletal: Musculoskeletal: Reports no additional musculoskeletal complaints Neurologic: Reports system reviewed and no additional complaints, except as documented Psychiatric: Psychiatric: Reports no additional psychiatric complaints Endocrine: Endocrine: Reports no additional endocrine complaints Hematologic/Lymphatic: Hematologic/Lymphatic: Reports no additional hematologic/lymphatic complaints Allergic/Immunologic: Allergic/Immunologic: Reports no additional allergic/immunologic complaints [facility] Past Medical History Medical History COVID-19 Insulin resistance Hypothyroid Vaginal symptom UTI (urinary tract infection) Hypertension Hypersomnia Elevated liver enzymes Elevated ferritin level Recurrent UTI (urinary tract infection) Alcohol consumption binge drinking Pyelonephritis Surgical History Surgical History History of breast surgery new implants, lift, liposuction History of bladder surgery 02/07/2022 Bladder sling H/O breast augmentation 2008 H/O wrist surgery 2011 Family History Family History Mother Diabetes mellitus Hypertension Hyperthyroidism Grandparent Cerebrovascular accident Sibling Family history of hypothyroidism Anemia Other Asthma Family history of alcoholism Family history of arthritis Family history of coronary artery disease Social History Social History Smoking status: Never smoker Alcohol intake: current Alcohol use details: social Substance use: never Lack of Transportation: No Lack of Food: Never True Current Housing: I Have Housing Concerned About Future Housing: No Difficulty Paying Gas/Electric Bills: No Difficulty Paying for Meds: No Currently Unemployed: No Education: Master's Degree or Higher Difficulty w/ Childcare or Family Care: No Exam Const: General: healthy appearing and no acute distress Nutritional Appearance: well nourished Orientation/consciousness: patient oriented x3 Limitations: no limitations Resp: Effort & Inspection: normal respiratory effort Auscultation: clear to auscultation bilaterally Cardio: Rate: regular rate Rhythm: regular rhythm Heart sounds: no murmurs GI: GI Palp: Yes Soft to palpation, No Tenderness to palpation present (GI), No Guarding due to palpation present (GI) and No Rebound tenderness present Auscultation: normal bowel sounds : General: Yes bladder normal to palpation and Yes no CVA tenderness Back/Spine/Pelvis: Back: no CVA tenderness Skin: General skin exam: normal color Rashes: no rashes Wounds: no wounds Neuro: General: patient oriented x3 Speech: normal speech Gait exam (Neuro): Normal gait present Psych: Appearance: grossly normal Mental Status: mental status grossly normal Affect: normal affect Attitude: cooperative Course Course Level of Care: Express Care Visit MDM - Female Genitourinary MDM Narrative Medical decision making narrative: No recent culture. Discharge instructions reviewed with patient, as well as provided in writing per nursing staff. The instructions also include specific and strict return/GO TO THE ER as well as f/u information. All questions have been answered, and the patient deny any further questions with discharge and discharge plan. Differential Diagnosis Differential diagnosis: Likely urinary tract infection, bacterial vaginosis, cervicitis and cystitis Medical Records Attestation: I reviewed the patient's medical records. Lab Data Attestation: I reviewed the patient's lab results. Discharge Plan Discharge Clinical Impression: Cystitis Patient Disposition: Home Condition: Stable Instructions: Antibiotic Form, Urinary Tract Infection in Women (ED), Dysuria (ED), Urinary Tract Infection in (ED) Additional Instructions: We will send a urine culture off to the lab; if the culture identifies an organism that the prescribed antibiotic will not treat, you will receive a phone call from an urgent care staff member and an appropriate antibiotic will be prescribed. -Your symptoms should begin to improve within a day of starting antibiotics. But you should finish all the antibiotic pills you get. Otherwise your infection might come back. -Also recommend: drink more fluid. It might help flush out germs, and it does no harm -Tylenol/ibuprofen as needed for pain -Follow-up with your primary care provider for urine recheck OR if your symptoms persist, change or worsen significantly before you can contact your personal physician then please, without delay, go to the emergency department for further evaluation. Patient Language: Citizen Of [place] Prescriptions: New nitrofurantoin monohyd/m-cryst [Macrobid] 100 mg capsule 100 mg PO Q12H 7 Days Qty: 14 0RF Rx Instructions: must administer with a meal/food phenazopyridine [Pyridium] 200 mg tablet 200 mg PO TID Qty: 6 0RF No Action testosterone 50 mg pellet 50 mg implant DIRECTED Mounjaro 15 mg/0.5 mL pen injector subcut albuterol sulfate 90 mcg/actuation HFA aerosol inhaler 2 inh inhalation QID PRN (Reason: shortness of breath or wheezing) Qty: 8.5 0RF Hair, Skin, Nails with Biotin 7.5-7.5-1,250 mg-unit-mcg tablet,chewable 1 tablet PO DAILY cyanocobalamin (vitamin B-12) [Dodex] 1,000 mcg/mL solution 1,000 mcg subcut WEEKLY 90 Days Qty: 13 1RF levothyroxine [Tirosint] 50 mcg capsule 50 mcg PO DAILY Qty: 90 2RF escitalopram oxalate [Lexapro] 10 mg tablet 10 mg PO DAILY Qty: 90 2RF alprazolam [Xanax] 0.5 mg tablet 0.5 mg PO DAILY PRN (Reason: anxiety) Qty: 30 0RF atorvastatin 10 mg tablet 10 mg PO QHS Qty: 90 1RF Follow-up/Referrals: PHYSICIAN,COMMUNICATIONS PROGRAM MANAGER [Primary Care Provider] - Time of Disposition: 19:40
[2025-05-14 19:29] VITALS: BP 121/82; PULSE 90; RESP 16; TEMP 36.7; O2SAT 99
[2025-05-14 19:35] LABS: EDUAAPPEAR Clear; EDUABILI Negative (Negative); EDUABLOOD Negative (Negative); EDUACOLOR1 Yellow; EDUAGLUCOSE Negative (Negative); EDUAKETONE Negative (Negative); EDUALEUKO 1+ (Negative); EDUANITRATE Negative (Negative); EDUAPROTEIN Negative (Negative); EDUAUROBILI 0.2
== END 2025-05-14 19:42 | disposition home or self-care (01) ==
PROVIDERS: Emergency Provider Nurse Practitioner Family
DX: N30.90 Cystitis, unspecified without hematuria (principal); E03.9 Hypothyroidism, unspecified; I10 Essential (primary) hypertension
CPT/HCPCS: 81003; 87077; 87086; 87186; 99213; G0463